=== PATIENT | female | born 1960 | race African-American/Black ===

== ENCOUNTER 2019-04-23 23:29 | Emergency (ER) | payer OTHER ==
[~2019-04-23] VITALS: Ht 172.7 cm; Wt 136.1 kg
[2019-04-24] MEDS ORDERED: NORVASC 2.5 MG2.5 M1 PO (00:34)
[2019-04-24] MEDS ORDERED: BACLOFEN 10MG T10 MG PO (00:35)
[2019-04-24] MEDS ORDERED: ASPIR-LOW81 MG PO (00:35)
[2019-04-24] MEDS ORDERED: LIPITOR 40 MG T40 M1 PO (00:35)
[2019-04-24] MEDS ORDERED: CARVEDILOL12.5 MG PO (00:36)
[2019-04-24] MEDS ORDERED: VOLTAREN GEL 1100 G1 TOP (00:36)
[2019-04-24] MEDS ORDERED: HYDROCHLOROTHIA25 M2 PO (00:37)
[2019-04-24] MEDS ORDERED: LANTUS SUBQ (00:37)
[2019-04-24] MEDS ORDERED: NEURONTIN 300M300 M2 PO (00:37)
[2019-04-24] MEDS ORDERED: LIDODERM1 EACH TOP (00:38)
[2019-04-24] MEDS ORDERED: PRINIVIL10 MG PO (00:38)
[2019-04-24] MEDS ORDERED: ATIVAN0.5 M1 PO (00:39)
[2019-04-24] MEDS ORDERED: NABUMETONE 500500 M1 PO (00:39)
[2019-04-24] MEDS ORDERED: OXYBUTYNIN 5 MG5 M2 PO (00:40)
[2019-04-24] MEDS ORDERED: TRAMADOL 50 MG50 MG PO (00:40)
[2019-04-24] MEDS ORDERED: ORPHENADRINE C100 M2 PO (00:40)
[2019-04-24] MEDS ORDERED: NYSTATIN1 EA10 TOP (00:41)
[2019-04-24] MEDS ORDERED: TRAZODONE HCL50 MG PO (00:41)
[2019-04-24] MEDS ORDERED: JANUVIA 50 MG T50 MG (00:42)
[2019-04-24] MEDS ORDERED: ULTRAM 50MG TAB50 MG PO (00:42)
[2019-04-24 01:45] LABS: CREATININE 1.6 mg/dL (0.6-1.0); POTASSIUM 5.4 mmol/L (3.5-5.1)
[2019-04-24 01:47] LABS: ABSOLUTE NEUTROPHILS 7.2 thou/uL (1.4-8.2); BASOPHILS 0.9 % (0.0-2.0); EOSINOPHILS 4.3 % (0.0-3.0); HEMOGLOBIN 9.2 gm/dL (12.0-15.0); LYMPHOCYTES 23.9 % (24.0-44.0); MCH 26.8 pg (26.0-34.0); MCHC 30.7 g/dL (28.0-37.0); MCV 87.1 fL (80.0-100.0); PLATELET COUNT 419 thou/uL (150-400); POLYS 60.9 % (36.0-66.0); RBC 3.44 mil/uL (4.20-5.00); RDW 17.5 % (10.5-14.5); WBC 11.8 thou/uL (4.0-11.0)
[2019-04-24 01:50] LABS: ALBUMIN 2.9 g/dL (3.4-5.0); DIRECT BILIRUBIN < 0.1 mg/dL (<0.1-0.3); SGOT 22 U/L (15-37); SGPT 20 U/L (30-65); TOTAL BILIRUBIN 0.4 mg/dL (<0.1-1.0); TOTAL PROTEIN 8.1 g/dL (6.4-8.2)
[2019-04-24 02:04] LABS: URINE BILIRUBIN NEGATIVE (Negative); URINE BLOOD NEGATIVE (Negative); URINE CLARITY CLEAR; URINE COLOR YELLOW; URINE GLUCOSE-RANDOM* NEGATIVE (Negative); URINE KETONES NEGATIVE (Negative); URINE LEUKOCYTES-REFLEX NEGATIVE (Negative); URINE NITRITE-REFLEX NEGATIVE (Negative); URINE PROTEIN (DIPSTICK) 2+ (Negative); URINE SPECIFIC GRAVITY 1.025 (1.005-1.035); URINE UROBILINOGEN 0.2 E.U./dl (0.2-1.0)
[2019-04-24 02:38] LABS: BACTERIA-REFLEX None Seen /HPF (None Seen); CRYSTALS None Seen /LPF (None Seen); HYALINE CASTS 0-3 Few /LPF (None Seen); MUCUS 0-3 Light strn/LPF (None Seen); SQUAMOUS 0-3 Few /LPF (0-3); URINE RBC None Seen /HPF (0-2); URINE WBC-REFLEX None Seen /HPF (0-5)
[2019-04-24 04:26] VITALS: BP 156/91
== END 2019-04-24 05:46 ==
LOC: ER 23:29
PROVIDERS: Emergency Medicine
DX: R41.82 Altered mental status, unspecified (principal); T42.75XA Adverse effect of unspecified antiepileptic and sedative-hypnotic drugs, initial encounter; E11.9 Type 2 diabetes mellitus without complications; Z79.4 Long term (current) use of insulin; Z88.2 Allergy status to sulfonamides; Y92.89 Other specified places as the place of occurrence of the external cause

== ENCOUNTER 2020-11-30 16:49 | Emergency (ER) | payer OTHER ==
[~2020-11-30] VITALS: Ht 149.9 cm; Wt 113.4 kg
[~2020-11-30 16:49] MED LIST: ASPIR-LOW81 MG PO; ATIVAN0.5 M1 PO; BACLOFEN 10MG T10 MG PO; CARVEDILOL12.5 MG PO; HYDROCHLOROTHIA25 M2 PO; JANUVIA 50 MG T50 MG; LANTUS SUBQ; LIDODERM1 EACH TOP; LIPITOR 40 MG T40 M1 PO; NABUMETONE 500500 M1 PO; NEURONTIN 300M300 M2 PO; NORVASC 2.5 MG2.5 M1 PO; NYSTATIN1 EA10 TOP; ORPHENADRINE C100 M2 PO; OXYBUTYNIN 5 MG5 M2 PO; PRINIVIL10 MG PO; TRAMADOL 50 MG50 MG PO; TRAZODONE HCL50 MG PO; ULTRAM 50MG TAB50 MG PO; VOLTAREN GEL 1100 G1 TOP
[2020-11-30 16:50] VITALS: BP 150/67
[2020-11-30 18:46] LABS: URINE BILIRUBIN NEGATIVE (Negative); URINE BLOOD TRACE (Negative); URINE CLARITY SL CLOUDY; URINE COLOR YELLOW; URINE GLUCOSE-RANDOM* NEGATIVE (Negative); URINE KETONES NEGATIVE (Negative); URINE LEUKOCYTES-REFLEX 1+ (Negative); URINE NITRITE-REFLEX POSITIVE (Negative); URINE PROTEIN (DIPSTICK) 2+ (Negative); URINE SPECIFIC GRAVITY 1.025 (1.005-1.035); URINE UROBILINOGEN 0.2 E.U./dl (0.2-1.0)
[2020-11-30 19:00] LABS: AMORPHOUS URATES Few /LPF (None Seen); BACTERIA-REFLEX >30 Many /HPF (None Seen); HYALINE CASTS 0-3 Few /LPF (None Seen); SQUAMOUS >10 Many /LPF (0-3); URINE RBC 1-2 Rare /HPF (NONE SEEN); URINE WBC-REFLEX >25 Many /HPF (0-5)
[2020-11-30 19:17] LABS: ABSOLUTE NEUTROPHILS 9.6 thou/uL (1.4-8.2); EOSINOPHILS 2.2 % (0.0-3.0); HEMATOCRIT 34.5 % (37.0-47.0); HEMOGLOBIN 11.3 gm/dL (12.0-15.0); MCH 30.4 pg (26.0-34.0); MCHC 32.8 g/dL (28.0-37.0); MCV 92.5 fL (80.0-100.0); MONOCYTES 5.6 % (1.0-8.0); PLATELET COUNT 218 thou/uL (150-400); POLYS 76.2 % (36.0-66.0); RBC 3.72 mil/uL (4.20-5.00); WBC 12.6 thou/uL (4.0-11.0)
[2020-11-30 19:24] LABS: ANION GAP 4 mmol/L (7-16); BUN 28 mg/dL (7-18); CALCIUM 9.4 mg/dL (8.5-10.1); CHLORIDE 100 mmol/L (98-107); CO2 35 mmol/L (21-32); CREATININE 1.2 mg/dL (0.6-1.0); GLUCOSE 196 mg/dL (74-106); POTASSIUM 4.3 mmol/L (3.5-5.1); SODIUM 139 mmol/L (136-145)
[2020-11-30 19:34] LABS: ALBUMIN 2.9 g/dL (3.4-5.0); SGOT 12 U/L (15-37); SGPT 14 U/L (14-59); TOTAL BILIRUBIN 0.3 mg/dL (0.2-1.0); TOTAL PROTEIN 7.3 g/dL (6.4-8.2); TROPONIN-I <0.06 ng/mL (<0.06)
[2020-12-01] MEDS ORDERED: LASIX 40 MG TAB40 MG PO (00:49)
[2020-12-01] MEDS ORDERED: MACROBID 100 M100 M1 PO (00:49)
--- NOTE | 2020-12-02 14:25 | EKG ---
[place] [address] [facility] [employer] [address] ELECTROCARDIOGRAM REPORT Name: KHOARONITJUANA Room #: [facility]#: [id number] Admission: 11/30/20 Attend Phys: Discharge: 12/01/20 Date of : 56 Report #: [id number] [facility] ED Test Date: 2020-11-30 Test Time: 18:43:55 Pat Name: JUANA BRUMFIELD Department: Room: Gender: F Patrol Driver: JCHAIREZ : 1960 Requested By: Damari Serna Order Number: [id number] MD: Alfonso De La Paz Measurements Intervals [place] Rate: 65 P: 47 NC: 182 QRS: 9 QRSD: 94 T: 7 QT: 397 QTc: 413 Interpretive Statements Sinus rhythm Poor R wave progression No previous ECG available for comparison Electronically Signed On 12-02-2020 14:24:48 CDT by Alfonso De La Paz [email or web address] <ELECTRONICALLY SIGNED> By: Alfonso De La Paz MD, [facility] 12/02/20 1424 1843 1843 Alfonso De La Paz MD, FAC /EPI
== END 2020-12-01 01:06 | disposition home or self-care (01) ==
LOC: ER 16:49
PROVIDERS: Nurse Practitioner Family
DX: N39.0 Urinary tract infection, site not specified (principal); R06.00 Dyspnea, unspecified; E11.65 Type 2 diabetes mellitus with hyperglycemia; G81.90 Hemiplegia, unspecified affecting unspecified side; D64.9 Anemia, unspecified; E66.01 Morbid (severe) obesity due to excess calories; I10 Essential (primary) hypertension; E78.5 Hyperlipidemia, unspecified; G47.30 Sleep apnea, unspecified; F32.9 Major depressive disorder, single episode, unspecified; Z88.1 Allergy status to other antibiotic agents; Z79.82 Long term (current) use of aspirin; Z79.4 Long term (current) use of insulin; Z20.822 Contact with and (suspected) exposure to COVID-19